=== PATIENT | male | born 2000 | race African-American/Black ===

== ENCOUNTER 2024-09-24 14:30 | Emergency (ER) | payer MEDICAID, OTHER ==
[~2024-09-24] VITALS: Ht 188 cm; Wt 87.7 kg
[2024-09-24 14:51] LABS: Urine Bacteria None Seen /hpf (None Seen)
[2024-09-24 15:09] LABS: Urine Blood Negative /uL (Negative); Urine Clarity Clear (Clear); Urine Color Light-Yellow (Yellow); Urine Mucus FEW (None Seen); Urine Protein, UAD Negative (Negative); Urine Specific Gravity 1.012 (1.001-1.035); Urine Squamous Epithelial Cell FEW /hpf (<5); Urine Urobilinogen Normal (Negative); Urine WBC 1 /HPF (0-3)
[2024-09-24 15:40] VITALS: BP 122/94; PULSE 79; RESP 16; TEMP 98; O2SAT 96
--- NOTE | 2024-09-24 15:46 | ED.PDOC ---
General HPI Comments A 23 YEAR OLD MALE PRESENTS TO THE ED WITH COMPLAINT OF PENILE DISCHARGE AND IRRITATION. PATIENT STATES HE HAS BEEN EXPERIENCING PENILE DISCHARGE AND IRRITATION FOR THE LAST 2 DAYS. PATIENT NOTES THAT THIS IS AN ONGOING ISSUE IN HIS SEEN HIS PRIMARY CARE PHYSICIAN AND BEEN TO MULTIPLE HOSPITALS FOR THIS COMPLAINT OVER THE LAST SEVERAL MONTHS MULTIPLE TEST AND ANTIBIOTICS WERE GIVEN. PATIENT DENIES DYSURIA, FEVER, CHILLS, SHORTNESS OF BREATH, CHEST PAIN, ABDOMINAL PAIN, NAUSEA, VOMITING, HEADACHE, OR OTHER COMPLAINTS. NO OTHER SYMPTOMS OR MODIFYING FACTORS AT THIS TIME. PATIENT IS ALERT, ORIENTED X 4, AND HAS STEADY GAIT. Chief Complaint: Penile Discharge Time Seen by MD: 14:48 Primary Care Provider: NIKI Reviewed notes: Nurses Notes, Medications, Allergies Information Source: Patient Mode of Arrival: Ambulatory Severity: Mild Inability to void: None Timing: Days Duration: Since onset, Days Prehospital treatment: None Onset: Spontaneous Symptoms: Penile discharge History of: None Location: None Penile discharge: White Modifying factors: None associated signs and symptoms: Penile Discharge Past Medical History PAST MEDICAL HISTORY: Denies Surgical History: Denies all surgeries Family History Family History: Reviewed,noncontributory to illness Social History Smoker: Non-Smoker Alcohol: Denies ETOH Use Drugs: Denies Drug Use Lives In: Home Constitutional: denies: chills, diaphoresis, fatigue, fever, malaise, sweats, weakness, others EENTM: denies: blurred vision, double vision, ear bleeding, ear discharge, ear drainage, ear pain, ear ringing, eye pain, eye redness, hearing loss, mouth pain, mouth swelling, nasal discharge, nose bleeding, nose congestion, nose pain, photophobia, tearing, throat pain, throat swelling, voice changes, others Respiratory: denies: cough, hemoptysis, orthopnea, SOB at rest, shortness of breath, SOB with excertion, stridor, wheezing, others Cardiovascular: denies: chest pain, dizzy spells, diaphoresis, Dyspnea on exert ion, edema, irregular heart beat, left arm pain, lightheadedness, palpitations, PND, syncope, others Gastrointestinal: denies: abdomen distended, abdominal pain, blood streaked bowels, constipated, diarrhea, dysphagia, difficulty swallowing, hematemesis, melena, nausea, poor appetite, poor fluid intake, rectal bleeding, rectal pain, vomiting, others Genitourinary: reports: penile discharge; denies: burning, dysuria, flank pain, frequency, hematuria, incontinence, penile sore, pain, testicle pain, testicle swelling, urgency, others Neurological: denies: dizziness, fainting, headache, left sided numbness, left sided weakness, numbness, paresthesia, pre-existing deficit, right sided numbness, right sided weakness, seizure, speech problems, tingling, tremors, weakness, others Musculoskeletal: denies: back pain, gout, joint pain, joint swelling, muscle pain, muscle stiffness, neck pain, others Integumetry: denies: bruises, change in color, change in hair/nails, dryness, laceration, lesions, lumps, rash, wounds, others Allergic/Immunocompromised: denies: Difficulty Healing, Frequent Infections, Hives, Itching, others Hematologic/Lymphatic: denies: anemia, blood clots, easy bleeding, easy bruising, swollen glands, others Endocrine: denies: excessive hunger, excessive sweating, excessive thirst, excessive urination, flushing, intolerance to cold, intolerance to heat, unexplained weight gain, unexplained weight loss, others Psychiatric: denies: anxiety, bipolar disorder, depression, hopeless, panic disorder, schizophrenia, sleepless, suicidal, others All Other Systems: Reviewed and Negative Physical Exam General Appearance: No Apparent Distress, Normal HEENT: Normal ENT Inspection, PERRL/EOMI, Pharynx Normal, TMs Normal Neck: Full Range of Motion, Non-Tender, Normal, Normal Inspection Respiratory: Chest Non-Tender, Lungs Clear, No Accessory Muscle Use, No Respiratory Distress, Normal Breath Sounds Cardiovascular: No Edema, No JVD, No Murmur, No Gallop, Normal Peripheral Pulses, Regular Rate/Rhythm Breast Exam: Deferred Gastrointestinal: No Organomegaly, Non Tender, No Pulsatile Mass, Normal Bowel Sounds, Soft Genitalia: Normal Pelvic: Discharge (MILD GREEN DISCHARGE OF PENIS, NO REDNESS AND SWELLING. 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 Was a procedure done?: No Differential Diagnosis Kidney stone (Female): N/A Kidney stone (Male): N/A Penile/Scrotal: STD, UTI Urinary Problem (Male): Urethritis, UTI Urinary Problem (Female): N/A X-Ray, Labs, Meds, VS Vital Signs Date Time Temp Pulse Resp B/P (MAP) Pulse Ox O2 Delivery O2 Flow Rate FiO2 09/24/24 15:40 16 96 Room Air 09/24/24 15:40 98.0 79 18 122/94 (103) 98 98.0 09/24/24 14:45 98.8 76 16 125/93 (104) 96 98.8 Lab Test 09/24/24 14:42 Range/Units Urine Color Light-yellow Yellow Urine Clarity Clear Clear Urine pH 6.0 5.0-9.0 Urine Specific [place] 1.012 1.001-1.035 Urine Protein Negative Negative Urine Ketones Negative Negative Urine Blood Negative Negative /uL Urine Nitrite Negative Negative Urine Bilirubin Negative Negative Urine Urobilinogen Normal Negative mg/dL Urine Leukocyte Esterase Negative Negative /uL Urine RBC 51 0 - 3 /hpf Urine Microscopic WBC 1 0-3 /HPF Urine Squamous Epithelial Cells Few <5 /hpf Urine Bacteria None seen None Seen /hpf Urine Mucus Few None Seen Urine Glucose Normal Normal mg/dL Current Medications Medications (Trade) Dose Ordered Sig/Hector Route Start Time Stop Time Status Last Admin Ceftriaxone Sodium (Rocephin) 500 mg ONCE ONCE IM 09/24/24 16:00 09/24/24 16:01 DC 09/24/24 15:57 Azithromycin (Zithromax Tablet) 1,000 mg ONCE ONCE PO 09/24/24 16:00 09/24/24 16:01 DC 09/24/24 16:01 X-Ray, Labs, Meds, VS Comment EXTERNAL MEDICAL RECORDS REVIEWED: [NONE] INDEPENDENT HISTORIANS: [NONE] SOCIAL DETERMINANTS OF HEALTH: [NONE] LABS ORDERED: UA, GC/CHLAMYDIA AT AMPLIFICATION REVIEWED AND INTERPRETED RESULTS: PENDING IMAGING ORDERED: NONE TREATMENTS ORDERED: ROCEPHIN 500 MG IM, AZITHROMYCIN 1 G P.O. PROCEDURES PERFORMED: NONE CRITICAL CARE TIME: NONE I HAVE DISCUSSED THE PATIENT WITH THE ATTENDING PHYSICIAN DR. MEDINA AND HE AGREES WITH THE PATIENT'S PLAN OF CARE AND DISPOSITION. BASED ON HISTORY OF PRESENT ILLNESS, AND PHYSICAL EXAM, PATIENT WILL BE DISCHARGED HOME. SHARED DECISION MAKING: PATIENT INSTRUCTED TO FOLLOW UP WITH PRIMARY CARE PROVIDER IN 1-2 DAYS FOR RE-EVALUATION OF SYMPTOMS. PATIENT VERBALIZES UNDERSTANDING TO RETURN TO ED FOR NEW OR WORSENING SYMPTOMS OR IF FOLLOW UP WITH PCP CANNOT BE OBTAINED. PATIENT FEELS COMFORTABLE GOING HOME AT THIS TIME. ALL QUESTIONS ADDRESSED AT TIME OF DISCHARGE. Time of 1ST Reevaluation: 16:10 Reevaluation 1ST: Improved Patient Education/Counseling: Diagnosis, Treatment, Need For Follow Up Family Education/Counseling: Diagnosis, Treatment, Need For Follow Up Medical Screening: No EMC Exist At This Time Departure 1 Departure Time of Disposition: 16:11 Impression: Primary Impression: Screening for STDs (sexually transmitted diseases) Additional Impression: Patient treated with medication Disposition: 01 HOME / SELF CARE / HOMELESS Condition: Stable Additional Instructions: FOLLOW-UP WITH PCP IN 1 TO 2 DAYS. RETURN TO ED FOR ANY NEW OR WORSENING SYMPTOMS. Discharged With: Self Critical Care Note Critical Care Time?: No Stability Stability form required: No I personally scribed for JERED LOUIS ([email or web address]) on 09/24/24 at 15:46. Electronically submitted by Mark Cid ([email or web address]). I personally scribed for JERED LOUIS ([email or web address]) on 09/24/24 at 15:57. Electronically submitted by Mark Cid ([email or web address]). JERED LOUIS Sep 24, 2024 15:46
[2024-09-24] MEDS: cefTRIAXone SOD 500 MG VL IM ONE (15:57)
[2024-09-24] MEDS: AZITHROMYCIN 250 MG TAB PO ONE (16:01)
== END 2024-09-24 16:11 | disposition home or self-care (01) ==
LOC: ER 14:30
DX: Z11.3 Encounter for screening for infections with a predominantly sexual mode of transmission (principal)
CPT/HCPCS: 81001; 96372; 99283; J0696

== ENCOUNTER 2024-11-29 13:59 | Outpatient (CLI) | payer MEDICAID ==
[2024-11-29 14:38] LABS: Basophils # (auto) 0 10 ^3/uL (0-0.2); Basophils % (auto) 0.8 % (0.0-2.0); Eosinophils # (auto) 0 10 ^3/uL (0-0.8); Eosinophils % (auto) 0.8 % (0.0-7.0); Hematocrit 45.6 % (41.0-53.0); Hemoglobin 15.6 g/dL (13.5-17.5); Lymphocytes # (auto) 1.5 10 ^3/uL (0.4-5.4); Lymphocytes % (auto) 28.7 % (10.0-50.0); Mean Corpuscular Hgb Conc. 34.2 g/dL (32.0-36.0); Mean Corpuscular Volume 90.6 fL (80.0-100.0); Monocytes # (auto) 0.3 10 ^3/uL (0-1.3); Monocytes % (auto) 5.4 % (0.0-12.0); Neutrophils # (auto) 3.5 10 ^3/uL (1.6-8.6); Neutrophils % (auto) 64.3 % (37.0-80.0); Nucleated Red Blood Cells % 0.1 %; Platelet Count (auto) 140 10^3/uL (140-450); Red Blood Cells 5.03 10^6/uL (4.5-5.90); Red Cell Distribution Width 14.1 % (11.8-14.3); White Blood Cell 5.4 10^3/uL (4.4-10.8)
[2024-11-30 11:50] LABS: Free T3 3.19 pg/mL (2.3-4.2); T3 Total 1.13 ng/mL (0.60-1.81)
[2024-11-30 11:51] LABS: Free T4 (Free Thyroxine) 1.21 ng/dL (0.89-1.76)
== END 2024-11-29 17:00 | disposition home or self-care (01) ==
LOC: LAB 13:59
PROVIDERS: ATTEND Internal Medicine
DX: R16.0 Hepatomegaly, not elsewhere classified (principal); K76.9 Liver disease, unspecified; E55.9 Vitamin D deficiency, unspecified
CPT/HCPCS: 36415; 82306; 82607; 84439; 84443; 84480; 84481; 85025

== ENCOUNTER 2024-12-27 09:52 | Emergency (ER) | payer MEDICAID ==
[~2024-12-27] VITALS: Ht 188 cm; Wt 88.9 kg
[2024-12-27 10:34] VITALS: BP 131/90; PULSE 70; RESP 17; TEMP 98.7; O2SAT 100
[2024-12-27 10:53] LABS: Urine Protein, UAD Negative (Negative)
--- NOTE | 2024-12-27 11:24 | ED.PDOC ---
History of Present Illness HPI Comments 24 year old male with a Hx of recurrent UTI's presents to the ED for the c/c of Intermittent burning upon Urination. Pt states that this burning episode started on 12/13/2024, and notes of associated mild intermittent non radiating back pain at this time. Pt notes on taking multiple different forms of antibiotics, the most recent one being Levo that was prescribed to him by his Urologist. Notes his last UA + Culture were negative but patient concerned about possible infection. Denies penile dc and testicular pain Denies recent sex partner Denies fevers, chills, night sweats, flank pain, nausea/vomiting Denies Ab pain Denies rashes Chief Complaint: Urinary Time Seen by MD: 11:18 Primary Care Provider: NIKI Reviewed Notes: Nurses Notes, Medications, Allergies Allergies: Coded Allergies: NO KNOWN ALLERGIES (Unverified , 12/27/24) Information Source: Patient Mode of Arrival: Ambulatory Severity: Mild Timing: Months Duration: Since onset Prehospital treatment: None Past Medical History PAST MEDICAL HISTORY: UTI'S Surgical History: Denies all surgeries Family History Family History: Reviewed,noncontributory to illness Social History Smoker: Non-Smoker Alcohol: Denies ETOH Use Drugs: Denies Drug Use Lives In: Home Constitutional: denies: chills, diaphoresis, fatigue, fever, malaise, sweats, weakness, others EENTM: denies: blurred vision, double vision, ear bleeding, ear discharge, ear drainage, ear pain, ear ringing, eye pain, eye redness, hearing loss, mouth pain, mouth swelling, nasal discharge, nose bleeding, nose congestion, nose pain, photophobia, tearing, throat pain, throat swelling, voice changes, others Respiratory: denies: cough, hemoptysis, orthopnea, SOB at rest, shortness of breath, SOB with excertion, stridor, wheezing, others Cardiovascular: denies: chest pain, dizzy spells, diaphoresis, Dyspnea on exertion, edema, irregular heart beat, left arm pain, lightheadedness, palpitations, PND, syncope, others Gastrointestinal: denies: abdomen distended, abdominal pain, blood streaked bowels, constipated, diarrhea, dysphagia, difficulty swallowing, hematemesis, melena, nausea, poor appetite, poor fluid intake, rectal bleeding, rectal pain, vomiting, others Genitourinary: reports: dysuria; denies: burning, flank pain, frequency, hematu kala, incontinence, penile discharge, penile sore, pain, testicle pain, testicle swelling, urgency, others Neurological: denies: dizziness, fainting, headache, left sided numbness, left sided weakness, numbness, paresthesia, pre-existing deficit, right sided numbness, right sided weakness, seizure, speech problems, tingling, tremors, weakness, others Musculoskeletal: denies: back pain, gout, joint pain, joint swelling, muscle pain, muscle stiffness, neck pain, others Integumetry: denies: bruises, change in color, change in hair/nails, dryness, laceration, lesions, lumps, rash, wounds, others Allergic/Immunocompromised: denies: Difficulty Healing, Frequent Infections, Hives, Itching, others Hematologic/Lymphatic: denies: anemia, blood clots, easy bleeding, easy bruising, swollen glands, others Endocrine: denies: excessive hunger, excessive sweating, excessive thirst, excessive urination, flushing, intolerance to cold, intolerance to heat, unexplained weight gain, unexplained weight loss, others Psychiatric: denies: anxiety, bipolar disorder, depression, hopeless, panic disorder, schizophrenia, sleepless, suicidal, others All Other Systems: Reviewed and Negative Physical Exam General Appearance: No Apparent Distress, Normal HEENT: Normal ENT Inspection, Pharynx Normal, TMs Normal Neck: Full Range of Motion, Non-Tender, Normal, Normal Inspection Respiratory: Chest Non-Tender, Lungs Clear, No Accessory Muscle Use, No Respiratory Distress, Normal Breath Sounds Cardiovascular: No JVD, No Murmur, No Gallop, Normal Peripheral Pulses, Regular Rate/Rhythm Breast Exam: Deferred Gastrointestinal: Non Tender, No Pulsatile Mass, Normal Bowel Sounds, Soft Genitalia: Deferred Pelvic: Deferred Rectal: Deferred Extremities: No calf tenderness, Normal range of motion, Non-tender, No pedal edema Musculoskeletal : Apperance: Normal Neurologic: Alert, No Motor Deficits, Normal Affect, Normal Mood Cerebellar Function: Normal Reflexes: Normal Skin: Dry, Normal Color, Warm Lymphatic: No Adenopathy Was a procedure done? Was a procedure done?: No Differential Dx Considerations may include: UTI, C/G, urethritis X-Ray, Labs, Meds, VS Vital Signs Date Time Temp Pulse Resp B/P (MAP) Pulse Ox O2 Delivery O2 Flow Rate FiO2 12/27/24 10:34 98.7 70 16 131/90 (104) 100 98.7 12/27/24 10:34 70 17 100 Room Air 12/27/24 10:05 98.4 62 16 135/88 (104) 97 98.4 Lab Test 12/27/24 09:59 Range/Units Urine Color Light-yellow Yellow Urine Clarity Clear Clear Urine pH 7.0 5.0-9.0 Urine Specific [place] 1.013 1.001-1.035 Urine Protein Negative Negative Urine Ketones Negative Negative Urine Blood Negative Negative /uL Urine Nitrite Negative Negative Urine Bilirubin Negative Negative Urine Urobilinogen Normal Negative mg/dL Urine Leukocyte Esterase Negative Negative /uL Urine RBC 1 0 - 3 /hpf Urine Microscopic WBC < 1 0-3 /HPF Urine Squamous Epithelial Cells None seen <5 /hpf Urine Bacteria None seen None Seen /hpf Urine Glucose Normal Normal mg/dL Chlamydia trachomatis (DEREJE) Pending Neisseria gonorrhoeae (DEREJE) Pending X-Ray, Labs, Meds, VS Comment 24 year old male with a Hx of recurrent UTI's presents to the ED for the c/c of Intermittent burning upon Urination. Patient arrives alert and oriented, ABC's intact, afebrile, vital signs stable, saturating well in room air Urinalysis was ordered to rule out UTI or hematuria. GC and Urine Culture Ordered UA was negative. Pending chlamydia and gonorrhea and urine culture. We will defer antibiotics at this time as patient is nontoxic non ill-appearing. Patient has no symptoms at this time Patient was strongly advised to follow up in 3-5 days for his lab results and p atient was informed it is his responsibility to do so Patient may benefit from D mannose Patient is stable for discharge at this time. External notes reviewed. Test results and diagnostic imaging interpreted. All diagnostic findings, discharge care, education and instructions provided Follow-up with PCP in 2 to 3 days Patient verbalized understanding and agreed to treatment plan Vital signs stable, afebrile, no acute distress noted Patient ambulatory with strong steady gait Advised to return precautions for any new or worsening symptoms, return to ER immediately for re-evaluation Patient is aware that the purpose of this visit was for an acute medical emergency requiring emergent stabilization. Chronic conditions, including malignancies have not been ruled out. Patient is instructed to follow up with PCP as directed and discharge instructions for continued care and workup. If un able to arrange follow-up, patient is to return to the emergency department for reassessment. Patient (parent or legal guardian if applicable) was given verbal and written discharge instructions and acknowledges understanding. Additional MDM Review of External, Non-ED records: External records reviewed. Discussion with independent historian (EMS, family) history obtained from the patient/parents (if applicable) at bedside Chronic conditions affecting care: None Social determinants of health affecting care: None Time of 1ST Reevaluation: 11:48 Reevaluation 1ST: Unchanged Patient Education/Counseling: Diagnosis, Treatment Family Education/Counseling: No Family Present SEPSIS Sepsis Screen Date sepsis recognized/suspect: Dec 27, 2024 Time Sepsis recognized/suspect: 100 Recent Procedure: No On Antibiotic Therapy: No Respiratory Rate >20: No Heart Rate >90: No Temp<36 C (96.8 F) or >38.3 C: No SBP <90 or MAP <65 mmHG: No New Acute Mental Status Change: No Is the patient on CPAP, BIPAP,: No Physician Orders Chlamydia/Gc Amplification (12/27/24 11:06) Urine Bacterial Culture (12/27/24 11:17) Vital Signs Date Time Temp Pulse Resp B/P (MAP) Pulse Ox O2 Delivery O2 Flow Rate FiO2 12/27/24 10:34 98.7 70 16 131/90 (104) 100 98.7 12/27/24 10:34 70 17 100 Room Air 12/27/24 10:05 98.4 62 16 135/88 (104) 97 98.4 Departure 1 Departure Time of Disposition: 11:25 Impression: Primary Impression: Dysuria Disposition: 01 HOME / SELF CARE / HOMELESS Condition: Stable Discharged With: Self Critical Care Note Critical Care Time?: No Stability Stability form required: No Heart Score Heart Score: Heart Score Response (Comments) Value History N/A 0 EKG N/A 0 Age N/A 0 Risk Factors N/A 0 Troponin N/A 0 Total 0 I personally scribed for FABIO LEAHY NP ([email or web address]) on 12/27/24 at 11:24. Electronically submitted by Pal Esparza ([email or web address]). FABIO LEAHY NP Dec 27, 2024 11:24
[2024-12-29 03:07] LABS: Chlamydia Trachomatis, NAA Negative (Negative); Neisseria gonorrhoeae, NAA Negative (Negative)
== END 2024-12-27 11:34 | disposition home or self-care (01) ==
LOC: ER 09:52
DX: R30.0 Dysuria (principal)
CPT/HCPCS: 81001; 87086

== ENCOUNTER 2025-05-04 16:47 | Emergency (ER) | payer MEDICAID ==
[~2025-05-04] VITALS: Ht 188 cm; Wt 99.1 kg
[2025-05-04] MEDS ORDERED: DOXY100C4 PO (19:06)
--- NOTE | 2025-05-04 19:06 | ED.PDOC ---
General HPI Comments PT SENT FROM URGENT CARE FOR C/C OF TESTICLE PAIN. PT REPORTS GROIN PAIN AND THROBBING TESTICLE PAIN. PT DENIES ANY DISCHARGE. PMHX OF RECURRING UTIS. FOLLOWING WITH UROLOGY, RECENTLY HAD A CYTOSCOPE AND CT ABD PELVIS W/ O ABNORMAL FINDINGS PER PT. DENIES URINARY OR STD COMPLAINTS Chief Complaint: Testicle Pain Time Seen by MD: 18:03 Primary Care Provider: NIKI Reviewed notes: Lubrication Worker Notes, Medications, Allergies Allergies: Coded Allergies: NO KNOWN ALLERGIES (Unverified , 12/27/24) Home Meds Active Scripts Doxycycline Hyclate (Doxycycline Hyclate) 100 Mg Cap, 100 MG PO BID for 14 Days, #28 CAP Prov:SANDRA GALEAS BUSINESS AND MARKETING TEACHER 05/04/25 Information Source: Patient Mode of Arrival: Ambulatory Past Medical History PAST MEDICAL HISTORY: UTI'S Surgical History: Denies all surgeries Family History Family History: Reviewed,noncontributory to illness Social History Smoker: Non-Smoker Alcohol: Denies ETOH Use Drugs: Denies Drug Use Lives In: Home All Other Systems: Reviewed and Negative (SEE HPI) Physical Exam General Appearance: No Apparent Distress, Normal HEENT: Pharynx Normal Neck: Full Range of Motion, Non-Tender Respiratory: Lungs Clear, No Respiratory Distress, Normal Breath Sounds Cardiovascular: No Murmur, Normal Peripheral Pulses, Regular Rate/Rhythm Breast Exam: Deferred Gastrointestinal: No Organomegaly, Non Tender, No Pulsatile Mass, Normal Bowel Sounds, Soft Genitalia: Other (LEFT INQUINAL ADENOPATHY W/TENDERNSS NO LESIONS OR SORES NOTED, TESTICLES NON-TENDER ) Pelvic: Deferred Rectal: Deferred Extremities: Normal capillary refill, Normal range of motion, No pedal edema Musculoskeletal : Apperance: Normal Neurologic: Alert, 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 Was a procedure done?: No Differential Diagnosis Kidney stone (Female): N/A Penile/Scrotal: Epidiymitis, Prostatitis, STD, UTI, Urolithiasis, Urinary Retention X-Ray, Labs, Meds, VS Vital Signs Date Time Temp Pulse Resp B/P (MAP) Pulse Ox O2 Delivery O2 Flow Rate FiO2 05/04/25 19:12 97.7 68 16 132/92 (105) 97 97.7 05/04/25 19:12 68 16 97 Room Air 05/04/25 16:48 98.2 64 18 135/96 100 98.2 X-Ray, Labs, Meds, VS Comment TRIAL DOXY, ADVISED TO TAKE MEDICATION PRESCRIBED, S/E DISCUSSED. F/U WITH UROLOGY IF NO IMPROVEMENT. ER RETURN PRECAUTIONS GIVEN Time of 1ST Reevaluation: 18:03 Reevaluation 1ST: Unchanged Time of 2ND Reevaluation: 19:05 Reevaluation 2ND: Improved Patient Education/Counseling: Diagnosis, Treatment, Need For Follow Up Family Education/Counseling: No Family Present SEPSIS Sepsis Screen Date sepsis recognized/suspect: May 04, 2025 Time Sepsis recognized/suspect: 1651 Recent Procedure: No On Antibiotic Therapy: No Respiratory Rate >20: No Heart Rate >90: No Temp<36 C (96.8 F) or >38.3 C: No SBP <90 or MAP <65 mmHG: No New Acute Mental Status Change: No Is the patient on CPAP, BIPAP,: No Vital Signs Date Time Temp Pulse Resp B/P (MAP) Pulse Ox O2 Delivery O2 Flow Rate FiO2 05/04/25 19:12 97.7 68 16 132/92 (105) 97 97.7 05/04/25 19:12 68 16 97 Room Air 05/04/25 16:48 98.2 64 18 135/96 100 98.2 Departure 1 Departure Time of Disposition: 19:05 Impression: Primary Impression: Inguinal adenopathy Disposition: 01 HOME / SELF CARE / HOMELESS Condition: Stable e-Prescriptions Doxycycline Hyclate (Doxycycline Hyclate) 100 Mg Cap 100 MG PO BID for 14 Days, #28 CAP Prov: SANDRA GALEAS 05/04/25 Discharged With: Self Critical Care Note Critical Care Time?: No Stability Stability form required: SANDRA Woodson May 04, 2025 19:06
[2025-05-04 19:12] VITALS: BP 132/92; PULSE 68; RESP 16; TEMP 97.7; O2SAT 97
== END 2025-05-04 19:13 | disposition home or self-care (01) ==
LOC: ER 16:47
DX: R59.0 Localized enlarged lymph nodes (principal); N50.819 Testicular pain, unspecified; Z79.899 Other long term (current) drug therapy